=== PATIENT | male | born 1990 | race Caucasian/White ===

== ENCOUNTER → 2025-01-28 | Outpatient (CLI) | payer BC | END | disposition home or self-care (01) | LOC: MRI 08:41 | DX: S92.212A Displaced fracture of cuboid bone of left foot, initial encounter for closed fracture (principal); S93.492A Sprain of other ligament of left ankle, initial encounter; S96.812A Strain of other specified muscles and tendons at ankle and foot level, left foot, initial encounter; S90.02XA Contusion of left ankle, initial encounter; S99.912A Unspecified injury of left ankle, initial encounter; M25.472 Effusion, left ankle; R93.7 Abnormal findings on diagnostic imaging of other parts of musculoskeletal system; X58.XXXA Exposure to other specified factors, initial encounter; Y93.89 Activity, other specified; Y92.89 Other specified places as the place of occurrence of the external cause; Y99.8 Other external cause status | CPT/HCPCS: 73721 ==

== ENCOUNTER 2025-04-14 22:23 | Emergency (ER) | payer BC ==
[~2025-04-14] VITALS: Ht 172.7 cm; Wt 100.0 kg
[2025-04-14 22:29] VITALS: O2SAT 100
[2025-04-14 22:58] LABS: BASOPHILS % 0.6 % (0.0-2.0); EOSINOPHILS % 3.9 % (0.0-5.0); HEMATOCRIT. 44.6 % (42.0-52.0); HEMOGLOBIN. 15.0 g/dL (14.0-18.0); LYMPHOCYTES % 30.4 % (20.0-50.0); MEAN PLATELET VOLUME 8.4 fl (7.4-10.4); MONOCYTES % 7.8 % (2.0-8.0); NEUTROPHILS % 57.3 % (40.0-76.0); PLATELET 251 x1000/uL (130-400); RED BLOOD CELL COUNT 5.47 mill/uL (4.7-6.1); RED CELL DISTRIBUTION WIDTH 14.6 % (11.6-14.6)
[2025-04-14 23:08] VITALS: BP 124/78; PULSE 71; RESP 14; TEMP 36.7; O2SAT 99
[2025-04-14 23:23] LABS: CREATININE 0.9 mg/dL (0.6-1.3); UREA NITROGEN BLOOD 10 mg/dL (9-23)
[2025-04-14 23:51] LABS: CLARITY URINE CLEAR (CLEAR); COLOR URINE YELLOW (YELLOW); GLUCOSE URINE NEGATIVE (NEGATIVE); KETONES URINE NEGATIVE (NEGATIVE); LEUKOCYTE ESTERASE URINE NEGATIVE (NEGATIVE); NITRITE URINE NEGATIVE (NEGATIVE); OCCULT BLOOD URINE NEGATIVE (NEGATIVE); PH URINE 6.0 (4.5-8.0); PROTEIN URINE NEGATIVE (NEGATIVE); SPECIFIC GRAVITY URINE 1.017 (1.005-1.030); UROBILINOGEN URINE 1.0 E.U./dL (0.2-1.0)
[2025-04-15] MEDS: ONDANSETRON 4MG ODT PO ONE (01:07)
[2025-04-15] MEDS ORDERED: ONDA-239 PO (01:12)
[2025-04-15] MEDS ORDERED: EPIN0.3P3 IM (01:12)
== END 2025-04-15 01:18 ==
LOC: ER 22:23
DX: R09.89 Other specified symptoms and signs involving the circulatory and respiratory systems (principal)
CPT/HCPCS: 99284; 80048; 81003; 85025; 36415; 71045; Q0162

== ENCOUNTER → 2025-04-17 | Outpatient (CLI) | payer BC ==
[~2025-04-17] MED LIST: ONDA-239 PO
[2025-04-17 07:35] LABS: BASOPHILS % 0.4 % (0.0-2.0); EOSINOPHILS % 4.5 % (0.0-5.0); HEMATOCRIT. 42.7 % (42.0-52.0); HEMOGLOBIN. 14.6 g/dL (14.0-18.0); LYMPHOCYTES % 29.6 % (20.0-50.0); MEAN PLATELET VOLUME 8.2 fl (7.4-10.4); MONOCYTES % 7.7 % (2.0-8.0); NEUTROPHILS % 57.8 % (40.0-76.0); PLATELET 253 x1000/uL (130-400); RED BLOOD CELL COUNT 5.27 mill/uL (4.7-6.1); RED CELL DISTRIBUTION WIDTH 14.9 % (11.6-14.6)
[2025-04-17 07:56] LABS: CREATININE 0.8 mg/dL (0.6-1.3); TRIGLYCERIDE 213 mg/dL (0-150); UREA NITROGEN BLOOD 12 mg/dL (9-23)
[2025-04-17 07:57] LABS: LDL CHOLESTEROL 119 mg/dL (5-100)
[2025-04-17 07:57] LABS: CLARITY URINE CLEAR (CLEAR); COLOR URINE YELLOW (YELLOW); GLUCOSE URINE NEGATIVE (NEGATIVE); KETONES URINE NEGATIVE (NEGATIVE); LEUKOCYTE ESTERASE URINE NEGATIVE (NEGATIVE); NITRITE URINE NEGATIVE (NEGATIVE); OCCULT BLOOD URINE NEGATIVE (NEGATIVE); PH URINE 6.0 (4.5-8.0); PROTEIN URINE NEGATIVE (NEGATIVE); SPECIFIC GRAVITY URINE 1.023 (1.005-1.030); UROBILINOGEN URINE 1.0 E.U./dL (0.2-1.0)
[2025-04-17 07:58] LABS: ASPARTATE AMINOTRANSFERASE 24 IU/L (<34); BILIRUBIN TOTAL 1.1 mg/dL (0.1-1.0)
[2025-04-17 07:59] LABS: PROTEIN TOTAL 6.3 g/dL (6.0-8.3)
== END | disposition home or self-care (01) ==
LOC: LAB 06:57
PROVIDERS: ATTEND Internal Medicine
DX: E66.9 Obesity, unspecified (principal); Z13.1 Encounter for screening for diabetes mellitus; Z13.220 Encounter for screening for lipoid disorders; Z00.00 Encounter for general adult medical examination without abnormal findings
CPT/HCPCS: 36415; 80053; 80061; 81003; 83036; 84443; 85025

== ENCOUNTER → 2025-08-05 | Outpatient (CLI) | payer BC ==
[~2025-08-05] MED LIST changes: +BARIUM SULFATE 176 GM SUSP.RECON ONE
== END | disposition home or self-care (01) ==
LOC: RAD 08:37
PROVIDERS: ATTEND Internal Medicine Gastroenterology
DX: R13.10 Dysphagia, unspecified (principal)
CPT/HCPCS: 74220; Z7610

== ENCOUNTER → 2025-08-12 | Outpatient (CLI) | payer OTHER ==
[~2025-08-12] MED LIST changes: -BARIUM SULFATE 176 GM SUSP.RECON ONE
== END | disposition home or self-care (01) ==
LOC: MRI 08:31
PROVIDERS: ATTEND Family Medicine Adult Medicine
DX: M77.8 Other enthesopathies, not elsewhere classified (principal); M25.532 Pain in left wrist
CPT/HCPCS: 73221

== ENCOUNTER → 2025-09-22 | Outpatient (CLI) | payer BC ==
[2025-09-22 13:56] LABS: BASOPHILS % 0.7 % (0.0-2.0); EOSINOPHILS % 3.6 % (0.0-5.0); HEMATOCRIT. 47.0 % (42.0-52.0); HEMOGLOBIN. 15.8 g/dL (14.0-18.0); LYMPHOCYTES % 30.0 % (20.0-50.0); MEAN PLATELET VOLUME 8.5 fl (7.4-10.4); MONOCYTES % 8.0 % (2.0-8.0); NEUTROPHILS % 57.7 % (40.0-76.0); PLATELET 246 x1000/uL (130-400); RED BLOOD CELL COUNT 5.83 mill/uL (4.7-6.1); RED CELL DISTRIBUTION WIDTH 14.2 % (11.6-14.6)
[2025-09-22 14:11] LABS: CREATININE 0.8 mg/dL (0.6-1.3); UREA NITROGEN BLOOD 7 mg/dL (9-23)
[2025-09-22 14:12] LABS: PROTEIN TOTAL 7.2 g/dL (6.0-8.3)
[2025-09-22 14:13] LABS: ASPARTATE AMINOTRANSFERASE 34 IU/L (<34); BILIRUBIN TOTAL 1.5 mg/dL (0.1-1.0)
[2025-09-22 14:37] LABS: CLARITY URINE CLEAR (CLEAR); COLOR URINE YELLOW (YELLOW); GLUCOSE URINE NEGATIVE (NEGATIVE); KETONES URINE NEGATIVE (NEGATIVE); LEUKOCYTE ESTERASE URINE NEGATIVE (NEGATIVE); NITRITE URINE NEGATIVE (NEGATIVE); OCCULT BLOOD URINE NEGATIVE (NEGATIVE); PH URINE 7.0 (4.5-8.0); PROTEIN URINE NEGATIVE (NEGATIVE); SPECIFIC GRAVITY URINE 1.026 (1.005-1.030); UROBILINOGEN URINE 1.0 E.U./dL (0.2-1.0)
== END | disposition home or self-care (01) ==
LOC: LAB 13:19
PROVIDERS: ATTEND Internal Medicine
DX: E78.5 Hyperlipidemia, unspecified (principal); N32.81 Overactive bladder; R73.03 Prediabetes
CPT/HCPCS: 36415; 80053; 81003; 83036; 85025

== ENCOUNTER → 2025-09-24 | Outpatient (CLI) | payer BC | END | disposition home or self-care (01) | LOC: US 07:33 | PROVIDERS: ATTEND Internal Medicine | DX: K76.0 Fatty (change of) liver, not elsewhere classified (principal); R74.01 Elevation of levels of liver transaminase levels; N32.81 Overactive bladder; R16.0 Hepatomegaly, not elsewhere classified | CPT/HCPCS: 76700 ==